=== PATIENT | female | born 1970 | race Caucasian/White ===

== ENCOUNTER 2017-12-18 13:52 | Emergency (ER) | payer SELFPAY ==
[2017-12-18] MEDS ORDERED: IBUPROFEN 400 MG TAB ONE (16:22)
--- NOTE | 2017-12-18 16:44 | RAD REPORT ---
EXAM DESCRIPTION: RAD - Elbow Left 3 View - 12/18/2017 4:25 pm CLINICAL HISTORY: Left elbow pain FINDINGS: No fracture or dislocation is seen.
--- NOTE | 2017-12-18 18:19 | EDPHYS ---
Physician Documentation [facility] Name: Leny Crane Age: 47 yrs Sex: Female : 1970 Arrival Date: 12/18/2017 Time: 13:55 Bed 11 Private MD: None, None ED Physician Warren Wesley HPI: 12/18 14:58 This 47 yrs old Female presents to ER via Ambulatory with complaints of Arm kav Pain. 18:13 The patient or guardian complains of pain, that is chronic. The complaints affect the kav left elbow. Context: The problem was sustained at work, resulted from trip and fall landing and injury left elbow area when landing on a bull dozer. Onset: The symptoms/episode began/occurred 3 month(s) ago. Treatment prior to arrival includes: no previous treatment. Modifying factors: The symptoms are alleviated by nothing. the symptoms are aggravated by movement. Associated signs and symptoms: The patient has no apparent associated signs or symptoms. Severity of symptoms: At their worst the symptoms were mild, just prior to arrival. The patient has experienced a previous episode, approximately 3 months ago. The patient has not recently seen a physician. . 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 - Social history:: Smoking status: Patient/guardian denies using tobacco. - Family history:: not pertinent. - Hospitalizations: : No recent hospitalization is reported. ROS: 18:13 Constitutional: Negative for fever, chills, and weight loss, Eyes: Negative for injury, kav pain, redness, and discharge, ENT: Negative for injury, pain, and discharge, Neck: Negative for injury, pain, and swelling, Cardiovascular: Negative for chest pain, palpitations, and edema, Respiratory: Negative for shortness of breath, cough, wheezing, and pleuritic chest pain, Abdomen/GI: Negative for abdominal pain, nausea, vomiting, diarrhea, and constipation, Back: Negative for injury and pain, : Negative for injury, bleeding, discharge, and swelling, Skin: Negative for injury, rash, and discoloration, Neuro: Negative for headache, weakness, numbness, tingling, and seizure, Psych: Negative for depression, anxiety, suicide ideation, homicidal ideation, and hallucinations, Allergy/Immunology: Negative for hives, rash, and allergies, Endocrine: Negative for neck swelling, polydipsia, polyuria, polyphagia, and marked weight changes, Hematologic/Lymphatic: Negative for swollen nodes, abnormal bleeding, and unusual bruising. 18:13 MS/extremity: Positive for pain, tenderness, of the left elbow, Negative for injury or acute deformity, swelling. Exam: 18:13 Constitutional: This is a well developed, well nourished patient who is awake, alert, kav and in no acute distress. Head/Face: Normocephalic, atraumatic. Eyes: Pupils equal round and reactive to light, extra-ocular motions intact. Lids and lashes normal. Conjunctiva and sclera are non-icteric and not injected. Cornea within normal limits. Periorbital areas with no swelling, redness, or edema. ENT: Nares patent. No nasal discharge, no septal abnormalities noted. Tympanic membranes are normal and external auditory canals are clear. Oropharynx with no redness, swelling, or masses, exudates, or evidence of obstruction, uvula midline. Mucous membranes moist. Neck: Trachea midline, no thyromegaly or masses palpated, and no cervical lymphadenopathy. Supple, full range of motion without nuchal rigidity, or vertebral point tenderness. No Meningismus. Chest/axilla: Normal chest wall appearance and motion. Nontender with no deformity. No lesions are appreciated. Cardiovascular: Regular rate and rhythm with a normal S1 and S2. No gallops, murmurs, or rubs. Normal PMI, no JVD. No pulse deficits. Respiratory: Lungs have equal breath sounds bilaterally, clear to auscultation and percussion. No rales, rhonchi or wheezes noted. No increased work of breathing, no retractions or nasal flaring. Abdomen/GI: Soft, non-tender, with normal bowel sounds. No distension or tympany. No guarding or rebound. No evidence of tenderness throughout. Back: No spinal tenderness. No costovertebral tenderness. Full range of motion. Skin: Warm, dry with normal turgor. Normal color with no rashes, no lesions, and no evidence of cellulitis. Neuro: Awake and alert, GCS 15, oriented to person, place, time, and situation. Cranial nerves II-XII grossly intact. Motor strength 5/5 in all extremities. Sensory grossly intact. Cerebellar exam normal. Normal gait. Psych: Awake, alert, with orientation to person, place and time. Behavior, mood, and affect are within normal limits. 18:13 Musculoskeletal/extremity: Extremities: noted in the left elbow: ROM: limited active range of motion, in the right arm and left elbow, Circulation is intact in all extremities. Pulses: are normal with no appreciated deficits, Perfusion: the patient is normally perfused throughout, pink, warm, noted to have brisk capillary refill, Perfusion: the extremity is normally perfused throughout, pink, warm, with brisk capillary refill, Sensation intact. Joints: the left elbow displays limited range of motion, tenderness. Vital Signs: 14:00 BP 107 / 72; Pulse 84; Resp 17; Temp 97.7; Pulse Ox 100% on R/A; Weight 73.03 kg; aj Height 5 ft. 6 in. (167.64 cm); Pain 6/10; 14:00 Body Mass Index 25.99 (73.03 kg, 167.64 cm) aj MDM: 18:13 Data reviewed: vital signs, nurses notes, radiologic studies, plain films. [facility] 18:19 Medical screening is not applicable. [facility] 12/18 16:06 Order name: Elbow Left 3 View XRAY; Complete Time: 18:11 [facility] 12/18 18:12 Interpretation: No acute disease. [facility] 12/18 18:12 Order name: Aden wrap-joint; Complete Time: 18:27 [facility] 12/18 18:12 Order name: Sling; Complete Time: 18:28 [facility] Administered Medications: 16:24 Drug: Ibuprofen 800 mg Route: PO; iw 18:28 Follow up: Response: No adverse reaction iw Disposition: 18:46 Co-signature as Attending Physician, Warren Wesley MD. rn Disposition: 12/18/17 18:19 Discharged to Home. Impression: Pain in left elbow. - Condition is Stable. - Discharge Instructions: Chronic Pain. - Prescriptions for Ibuprofen 800 mg Oral Tablet - take 1 tablet by ORAL route every 8 hours As needed take with food; 30 tablet. - Medication Reconciliation Form, Thank You Letter, Antibiotic Education, Prescription Opioid Use form. - Follow up: Private Physician; When: 5 - 6 days; Reason: If symptoms return. - Problem is chronic. - Symptoms have improved. Signatures: Dispatcher [employer] Radha Montes, RN RN Patricia Leavitt, LEARNING COACH LEARNING COACH Nayely Chirinos RN RN iw Nieto, Roman, MD MD psychiatric arnp: (The following items were deleted from the chart) 18:28 18:19 12/18/2017 18:19 Discharged to Home. Impression: Pain in left elbow. Condition is iw Stable. Forms are Medication Reconciliation Form, Thank You Letter, Antibiotic Education, Prescription Opioid Use. Follow up: Private Physician; When: 5 - 6 days; Reason: If symptoms return. Problem is chronic. Symptoms have improved. kav
--- NOTE | 2017-12-18 18:19 | ER ---
Nurse's Notes [facility] Name: Leny Crane Age: 47 yrs Sex: Female : 1970 Arrival Date: 12/18/2017 Time: 13:55 Bed 11 Private MD: None, None Diagnosis: Pain in left elbow Presentation: 12/18 13:58 Presenting complaint: Patient states: "I fell on the tracks of my dozer about 3 or 4 aj months ago and my left arm has been bothering me since." Reports pain when reaching out and lifting objects. Transition of care: patient was not received from another setting of care. Onset of symptoms was September 2017. Care prior to arrival: None. 13:58 Method Of Arrival: Ambulatory aj 13:58 Acuity: BRYCE 4 aj 18:28 Initial Sepsis Screen: Does the patient meet any 2 criteria? No. Patient's initial iw sepsis screen is negative. Does the patient have a suspected source of infection? No. Patient's initial sepsis screen is negative. Triage Assessment: 14:00 General: Appears in no apparent distress. comfortable, Behavior is calm, cooperative, aj appropriate for age. Pain: Complains of pain in left arm Pain currently is 6 out of 10 on a pain scale. Neuro: Level of Consciousness is awake, alert, obeys commands, Oriented to person, place, time, situation, Appropriate for age. Respiratory: Airway is patent Respiratory effort is even, unlabored, Respiratory pattern is regular, symmetrical. Derm: Skin is intact, is healthy with good turgor, Skin is pink, warm \\T\\ dry. normal. Musculoskeletal: Circulation, motion, and sensation intact. Range of motion: intact in all extremities, Swelling absent Reports pain in left arm. 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 - Social history:: Smoking status: Patient/guardian denies using tobacco. - Family history:: not pertinent. - Hospitalizations: : No recent hospitalization is reported. Screenin:49 Abuse screen: Denies threats or abuse. Denies injuries from another. Nutritional iw screening: No deficits noted. Tuberculosis screening: No symptoms or risk factors identified. Fall Risk None identified. Assessment: 16:40 General: Appears in no apparent distress. comfortable, Behavior is calm, cooperative. iw Pain: Complains of pain in left arm. Neuro: Level of Consciousness is awake, alert, obeys commands, Oriented to person, place, time. Respiratory: Respiratory effort is even, unlabored. Derm: Skin is pink, warm \\T\\ dry. normal. Musculoskeletal: Range of motion: intact in all extremities. 17:48 Reassessment: Patient appears in no apparent distress at this time. Patient and/or iw family updated on plan of care and expected duration. Pain level reassessed. Patient is alert, oriented x 3, equal unlabored respirations, skin warm/dry/pink. Vital Signs: 14:00 BP 107 / 72; Pulse 84; Resp 17; Temp 97.7; Pulse Ox 100% on R/A; Weight 73.03 kg; aj Height 5 ft. 6 in. (167.64 cm); Pain 6/10; 14:00 Body Mass Index 25.99 (73.03 kg, 167.64 cm) ED Course: 13:55 Patient arrived in ED. mr 13:56 None, None is Private Physician. mr 14:00 Triage completed. aj 14:00 Arm band placed on right wrist. Patient placed in waiting room, Patient notified of aj wait time. 14:58 Patricia Ornelas FNP is PHCP. kav 14:58 Warren Wesley MD is Attending Physician. kav 15:21 Nayely Funez, RN is Primary Nurse. iw 16:26 Elbow Left 3 View XRAY In Process Unspecified. EDMS 18:28 Patient has correct armband on for positive identification. iw 18:28 No provider procedures requiring assistance completed. Patient did not have IV access iw during this emergency room visit. Administered Medications: 16:24 Drug: Ibuprofen 800 mg Route: PO; iw 18:28 Follow up: Response: No adverse reaction iw Outcome: 18:19 Discharge ordered by . kav 18:28 Discharged to home ambulatory. iw 18:28 Condition: good 18:28 Discharge instructions given to patient, Instructed on discharge instructions, follow up and referral plans. medication usage, Demonstrated understanding of instructions, follow-up care, medications, Prescriptions given X 1. 18:28 Patient left the ED. iw Signatures: Dispatcher [employer] Radha Montes RN RN aj Vern, Katherine, Berenice Brasher Irene, RN RN iw Corrections: (The following items were deleted from the chart) 14:02 14:00 X-ray ordered. radha garcia
== END 2017-12-18 18:28 | disposition home or self-care (01) ==
LOC: ER 13:52
DX: M25.522 Pain in left elbow (principal)
CPT/HCPCS: 99283